=== PATIENT | female | born 1965 | race African-American/Black ===

== ENCOUNTER 2016-12-22 16:13 | Emergency (ER) | payer BC ==
[~2016-12-22] VITALS: Ht 167.6 cm; Wt 82.0 kg
[2016-12-22] MEDS ORDERED: CYCLOBENZAPRINE 10MG TABLET PO ONE (23:30)
[2016-12-22] MEDS ORDERED: KETOROLAC 60MG/2ML VIAL IM ONE (23:30)
[2016-12-23 00:31] VITALS: BP 156/62
== END 2016-12-23 00:33 | disposition home or self-care (01) ==
LOC: ER 23:55
DX: S16.1XXA Strain of muscle, fascia and tendon at neck level, initial encounter (principal); M54.89 Other dorsalgia; V49.49XA Driver injured in collision with other motor vehicles in traffic accident, initial encounter; Y93.89 Activity, other specified; Y92.410 Unspecified street and highway as the place of occurrence of the external cause
CPT/HCPCS: 96372; 99283; J1885

== ENCOUNTER 2017-07-03 06:19 | Emergency (ER) | payer BC ==
[~2017-07-03] VITALS: Ht 167.6 cm; Wt 89.0 kg
[2017-07-03 11:37] LABS: CLARITY URINE CLOUDY (CLEAR); COLOR URINE YELLOW (YELLOW); KETONES URINE TRACE (NEGATIVE); LEUKOCYTE ESTERASE URINE NEGATIVE (NEGATIVE); NITRITE URINE NEGATIVE (NEGATIVE); OCCULT BLOOD URINE TRACE (NEGATIVE); PROTEIN URINE NEGATIVE (NEGATIVE); SPECIFIC GRAVITY URINE 1.025 (1.005-1.030); UROBILINOGEN URINE 0.2 E.U./dL (0.2-1.0)
[2017-07-03] MEDS ORDERED: ACETAMINOPHEN 325MG TABLET PO STA (12:22)
[2017-07-03 12:30] VITALS: BP 116/65
== END 2017-07-03 16:35 | disposition home or self-care (01) ==
LOC: ER 06:19
DX: J10.1 Influenza due to other identified influenza virus with other respiratory manifestations (principal); J20.9 Acute bronchitis, unspecified; M79.1 Myalgia; H92.09 Otalgia, unspecified ear; I10 Essential (primary) hypertension; D86.9 Sarcoidosis, unspecified
CPT/HCPCS: 71045; 81001; 87804; 99285

== ENCOUNTER 2018-10-06 12:45 | Emergency (ER) | payer BC ==
[~2018-10-06] VITALS: Ht 167.6 cm; Wt 84.0 kg
[2018-10-06] MEDS ORDERED: ONDANSETRON 4MG ODT PO ONE (16:00)
[2018-10-06] MEDS ORDERED: IBUPROFEN 600MG TABLET PO ONE (16:00)
[2018-10-06 18:13] VITALS: BP 161/89
== END 2018-10-06 18:15 | disposition home or self-care (01) ==
LOC: ER 12:45
DX: S16.1XXA Strain of muscle, fascia and tendon at neck level, initial encounter (principal); S39.012A Strain of muscle, fascia and tendon of lower back, initial encounter; Z98.890 Other specified postprocedural states; V43.52XA Car driver injured in collision with other type car in traffic accident, initial encounter; Y93.89 Activity, other specified; Y92.488 Other paved roadways as the place of occurrence of the external cause
CPT/HCPCS: 72040; 72100; 99283; Q0162

== ENCOUNTER 2020-03-27 17:59 | Inpatient (IN) | payer BC ==
[~2020-03-27] VITALS: Ht 167.6 cm; Wt 86.2 kg
[2020-03-27] MEDS ORDERED: ONDANSETRON HCL 4MG/2ML INJ IV STA (19:56)
[2020-03-27] MEDS ORDERED: MORPHINE SULFATE 4 MG/ML CPJ (NOT FOR IM USE) IV STA (19:56)
[2020-03-27] MEDS ORDERED: SODIUM CHLORIDE 0.9% 1,000 ML IV ONE (20:00)
[2020-03-27 21:37] LABS: HEMATOCRIT. 41.8 % (36.0-48.0); HEMOGLOBIN. 14.2 g/dL (12.0-16.0); MEAN CORPUSCULAR VOLUME 91.7 fL (81.0-99.0); MEAN PLATELET VOLUME 8.4 fl (7.4-10.4); PLATELET 221 x1000/uL (130-400); RED BLOOD CELL COUNT 4.56 mill/uL (4.2-5.4); RED CELL DISTRIBUTION WIDTH 12.8 % (11.6-14.6)
[2020-03-27 21:44] LABS: CHLORIDE 105 mEq/L (98-107)
[2020-03-27 21:47] LABS: PROTHROMBIN TIME 10.6 sec (9.6-11.0)
[2020-03-27 21:54] LABS: CLARITY URINE CLOUDY (CLEAR); COLOR URINE YELLOW (YELLOW); KETONES URINE TRACE (NEGATIVE); LEUKOCYTE ESTERASE URINE 1+ (NEGATIVE); NITRITE URINE NEGATIVE (NEGATIVE); OCCULT BLOOD URINE 3+ (NEGATIVE); PROTEIN URINE TRACE (NEGATIVE); SPECIFIC GRAVITY URINE 1.021 (1.005-1.030); UROBILINOGEN URINE 0.2 E.U./dL (0.2-1.0)
[2020-03-27 21:56] LABS: *AMPHETAMINES SCREEN URINE NEGATIVE (NEGATIVE); *BARBITURATES SCREEN URINE NEGATIVE (NEGATIVE); *BENZODIAZEPINES SCREEN URINE NEGATIVE (NEGATIVE); *COCAINE SCREEN URINE NEGATIVE (NEGATIVE); METHADONE URINE SCREEN NEGATIVE (NEGATIVE); OPIATES URINE SCREEN NEGATIVE (NEGATIVE)
[2020-03-27 21:57] LABS: CANNABINOID URINE SCREEN NEGATIVE (NEGATIVE); PHENCYCLIDINE URINE SCREEN NEGATIVE (NEGATIVE)
[2020-03-27] MEDS ORDERED: TAMSULOSIN HCL 0.4MG SR CAPSULE PO ONE (22:00)
[2020-03-27] MEDS ORDERED: KETOROLAC 30MG/ML VIAL IV ONE (22:00)
[2020-03-27 22:01] LABS: PLATELET ESTIMATE NORMAL
[2020-03-27] MEDS ORDERED: CEFTRIAXONE 1 G PREMIX 50 ML IV ONE (22:30)
[2020-03-28] VITALS: BP_SYST 138; BP_DIAS 74; BP_DIAS 76
[2020-03-28] MEDS ORDERED: MORPHINE SULFATE 4 MG/ML CPJ (NOT FOR IM USE) IV PRN (00:45)
[2020-03-28] MEDS ORDERED: MECLIZINE 25MG TABLET PO PRN (00:45)
[2020-03-28] MEDS ORDERED: ACETAMINOPHEN 325MG TABLET PO PRN (00:45)
[2020-03-28 04:00] VITALS: BP 133/74
[2020-03-28 08:00] VITALS: BP 127/62
[2020-03-28 12:00] VITALS: BP 124/71
[2020-03-28] MEDS: TAMSULOSIN HCL 0.4MG SR CAPSULE PO SCH (12:14)
[2020-03-28] MEDS: SODIUM CHLORIDE 0.45% 1,000 ML IV SCH (12:15)
[2020-03-28] MEDS: KETOROLAC 30MG/ML VIAL IV SCH ×2 (13:02→17:31)
[2020-03-28] MEDS ORDERED: IPRATROPIUM/ALBUTEROL 0.5-3(2.5)MG/3ML NEB HHN PRN (14:30)
[2020-03-28] MEDS ORDERED: ONDANSETRON HCL 4MG/2ML INJ IV PRN (14:30)
[2020-03-28] MEDS ORDERED: BISACODYL 10MG SUPP PR PRN (14:30)
[2020-03-28] MEDS ORDERED: LORAZEPAM 2MG/ML CPJ IV PRN (14:30)
[2020-03-28 16:00] VITALS: BP 105/55
[2020-03-28 16:32] LABS: BASOPHILS % 0.8 % (0.0-2.0); EOSINOPHILS % 1.4 % (0.0-5.0); HEMATOCRIT. 39.2 % (36.0-48.0); LYMPHOCYTES % 26.4 % (20.0-50.0); MEAN CORPUSCULAR HEMOGLOBIN 30.7 pg (28.0-32.0); MEAN CORPUSCULAR VOLUME 92.5 fL (81.0-99.0); MEAN PLATELET VOLUME 8.4 fl (7.4-10.4); NEUTROPHILS % 62.4 % (40.0-76.0); PLATELET 178 x1000/uL (130-400); RED BLOOD CELL COUNT 4.24 mill/uL (4.2-5.4); RED CELL DISTRIBUTION WIDTH 12.7 % (11.6-14.6)
[2020-03-28 16:46] LABS: CHLORIDE 104 mEq/L (98-107)
[2020-03-28 16:54] LABS: LDL CHOLESTEROL 105 mg/dL (5-100)
[2020-03-28 16:56] LABS: HDL CHOLESTEROL 55 mg/dL (40-59); T4 FREE 0.76 ng/dL (0.76-1.46)
[2020-03-28 20:00] VITALS: BP 121/80
[2020-03-28] MEDS ORDERED: LACTULOSE 20G/30ML UDC PO PRN (21:00)
[2020-03-28] MEDS ORDERED: FAMOTIDINE 20MG TABLET PO SCH (21:00)
[2020-03-28] MEDS ORDERED: CEFTRIAXONE 1,000 MG in DEXTROSE 5% WATER 50 ML IV SCH (23:00)
[2020-03-29] VITALS: BP 113/56
[2020-03-29] MEDS: KETOROLAC 30MG/ML VIAL IV SCH ×3 (01:03→11:42)
[2020-03-29] MEDS: SODIUM CHLORIDE 0.45% 1,000 ML IV SCH ×2 (01:06→06:25)
[2020-03-29 04:00] VITALS: BP 114/58
[2020-03-29 05:55] LABS: CHLORIDE 105 mEq/L (98-107)
[2020-03-29 06:13] LABS: BASOPHILS % 0.9 % (0.0-2.0); EOSINOPHILS % 2.5 % (0.0-5.0); HEMOGLOBIN. 12.4 g/dL (12.0-16.0); LYMPHOCYTES % 36.7 % (20.0-50.0); MEAN CORPUSCULAR HEMOGLOBIN 30.7 pg (28.0-32.0); MEAN CORPUSCULAR VOLUME 91.7 fL (81.0-99.0); MEAN PLATELET VOLUME 8.7 fl (7.4-10.4); MONOCYTES % 8.2 % (2.0-8.0); NEUTROPHILS % 51.7 % (40.0-76.0); PLATELET 181 x1000/uL (130-400); RED BLOOD CELL COUNT 4.03 mill/uL (4.2-5.4); RED CELL DISTRIBUTION WIDTH 12.5 % (11.6-14.6)
[2020-03-29 08:00] VITALS: BP 101/60
[2020-03-29] MEDS: TAMSULOSIN HCL 0.4MG SR CAPSULE PO SCH (08:29)
[2020-03-29 12:00] VITALS: BP 119/64
[2020-03-29 14:13] VITALS: BP 119/64
== END 2020-03-29 15:05 | disposition home or self-care (01) | DRG 690 ==
LOC: ER 17:59 → 6EST 22:19 → EDBEDREQTM 22:21 → EDBEDREQ 22:21 → ENRESERV 22:44
PROVIDERS: ADMIT Internal Medicine; ATTEND Internal Medicine
DX: N13.6 Pyonephrosis (principal); N20.2 Calculus of kidney with calculus of ureter; E66.9 Obesity, unspecified; D86.9 Sarcoidosis, unspecified; R16.0 Hepatomegaly, not elsewhere classified; I10 Essential (primary) hypertension; R73.9 Hyperglycemia, unspecified; K42.9 Umbilical hernia without obstruction or gangrene; K76.0 Fatty (change of) liver, not elsewhere classified; Z87.442 Personal history of urinary calculi; Z68.30 Body mass index [BMI] 30.0-30.9, adult
CPT/HCPCS: 36415; 74176; 76770; 80048; 80053; 80061; 80305; 81003; 83036; 84439; 84443; 85025; 93005; 99285; J0696; J1885; J2270; J2405; J7030; J7060

== ENCOUNTER → 2020-06-04 | Outpatient (CLI) | payer BC | END | disposition home or self-care (01) | LOC: CT 08:00 | PROVIDERS: ATTEND Specialist | DX: R16.0 Hepatomegaly, not elsewhere classified (principal); K42.9 Umbilical hernia without obstruction or gangrene; N20.0 Calculus of kidney | CPT/HCPCS: 74176 ==

== ENCOUNTER 2020-09-20 02:10 | Inpatient (IN) | payer BC ==
[~2020-09-20] VITALS: Ht 167.6 cm; Wt 89.4 kg
[2020-09-20 02:43] LABS: CLARITY URINE CLOUDY (CLEAR); COLOR URINE YELLOW (YELLOW); KETONES URINE TRACE (NEGATIVE); LEUKOCYTE ESTERASE URINE TRACE (NEGATIVE); NITRITE URINE NEGATIVE (NEGATIVE); OCCULT BLOOD URINE NEGATIVE (NEGATIVE); PROTEIN URINE NEGATIVE (NEGATIVE); SPECIFIC GRAVITY URINE 1.023 (1.005-1.030); UROBILINOGEN URINE 0.2 E.U./dL (0.2-1.0)
[2020-09-20] MEDS ORDERED: NITROGLYCERIN 0.4MG TABLET SL SL ONE (02:45)
[2020-09-20] MEDS ORDERED: ASPIRIN 325MG EC TABLET PO ONE (02:45)
[2020-09-20 03:19] LABS: BASOPHILS % 0.8 % (0.0-2.0); EOSINOPHILS % 1.9 % (0.0-5.0); HEMATOCRIT. 42.1 % (36.0-48.0); HEMOGLOBIN. 13.9 g/dL (12.0-16.0); LYMPHOCYTES % 37.4 % (20.0-50.0); MEAN CORPUSCULAR HEMOGLOBIN 30.3 pg (28.0-32.0); MEAN CORPUSCULAR VOLUME 91.9 fL (81.0-99.0); MEAN PLATELET VOLUME 8.5 fl (7.4-10.4); MONOCYTES % 8.2 % (2.0-8.0); NEUTROPHILS % 51.7 % (40.0-76.0); PLATELET 221 x1000/uL (130-400); RED BLOOD CELL COUNT 4.58 mill/uL (4.2-5.4); RED CELL DISTRIBUTION WIDTH 12.7 % (11.6-14.6)
[2020-09-20 03:20] LABS: CHLORIDE 105 mEq/L (98-107)
[2020-09-20 08:00] VITALS: BP_SYST 114; BP_DIAS 60; BP_DIAS 68
[2020-09-20 08:58] VITALS: BP 114/68
[2020-09-20] MEDS ORDERED: ACETAMINOPHEN 325MG TABLET PO PRN (11:00)
[2020-09-20] MEDS ORDERED: ONDANSETRON HCL 4MG/2ML INJ IV PRN (11:00)
[2020-09-20 12:00] VITALS: BP 111/60
[2020-09-20] MEDS ORDERED: REGADENOSON 0.4 MG/5 ML IV NR (12:00)
[2020-09-20] MEDS: ASPIRIN 81MG TABLET PO SCH (14:03)
[2020-09-20] MEDS ORDERED: REGADENOSON 0.4 MG/5 ML IV ONE (14:54)
[2020-09-20 16:00] VITALS: BP 114/74
[2020-09-20 20:00] VITALS: BP 102/47
[2020-09-21] VITALS: BP 99/58
[2020-09-21 04:00] VITALS: BP 99/52
[2020-09-21 08:00] VITALS: BP 113/63
[2020-09-21] MEDS: ASPIRIN 81MG TABLET PO SCH (09:19)
[2020-09-21 12:00] VITALS: BP 124/60
[2020-09-21 15:40] VITALS: BP 124/60
[2020-09-21 16:00] VITALS: BP 110/65
== END 2020-09-21 15:55 | disposition home or self-care (01) | DRG 206 ==
LOC: ER 02:10 → ENRESERV 07:04 → 6WST 08:15
PROVIDERS: ADMIT Internal Medicine; ATTEND Internal Medicine
DX: M94.0 Chondrocostal junction syndrome [Tietze] (principal); D86.9 Sarcoidosis, unspecified; E66.9 Obesity, unspecified; Z20.822 Contact with and (suspected) exposure to COVID-19; K21.9 Gastro-esophageal reflux disease without esophagitis; I11.9 Hypertensive heart disease without heart failure; Z71.3 Dietary counseling and surveillance; Z68.31 Body mass index [BMI] 31.0-31.9, adult
CPT/HCPCS: 36415; 71045; 78452; 80053; 81003; 83880; 84484; 85025; 85379; 85651; 86140; 87426; 93005; 93017; 93306; 99285; A9500; J2785

== ENCOUNTER 2024-07-09 16:13 | Emergency (ER) | payer BC, OTHER ==
[~2024-07-09] VITALS: Ht 170.2 cm; Wt 70.0 kg
[2024-07-09 16:21] VITALS: TEMP 36.7; O2SAT 95
[2024-07-09] MEDS ORDERED: ONDANSETRON HCL 4MG/2ML INJ IV STA (16:53)
[2024-07-09] MEDS: ONDANSETRON HCL 4MG/2ML INJ IV NR (18:40)
[2024-07-09] MEDS: SODIUM CHLORIDE 0.9% 1,000 ML IV ONE (18:40)
[2024-07-09 21:18] LABS: BASOPHILS % 0.5 % (0.0-2.0); EOSINOPHILS % 0.1 % (0.0-5.0); HEMOGLOBIN. 13.7 g/dL (12.0-16.0); LYMPHOCYTES % 16.9 % (20.0-50.0); MEAN CORPUSCULAR HEMOGLOBIN 30.1 pg (28.0-32.0); MEAN CORPUSCULAR HGB CONC 32.5 g/dL (31.0-37.0); MEAN CORPUSCULAR VOLUME 92.5 fL (81.0-99.0); MEAN PLATELET VOLUME 8.9 fl (7.4-10.4); MONOCYTES % 3.4 % (2.0-8.0); NEUTROPHILS % 79.1 % (40.0-76.0); PLATELET 226 x1000/uL (130-400); RED BLOOD CELL COUNT 4.54 mill/uL (4.2-5.4); RED CELL DISTRIBUTION WIDTH 12.9 % (11.6-14.6); WHITE BLOOD COUNT 8.2 x1000/uL (4.5-11.0)
[2024-07-09 21:23] LABS: CARBON DIOXIDE 25 mEq/L (21-32); CHLORIDE 107 mEq/L (98-107); SODIUM 145 mEq/L (136-145)
[2024-07-09 21:24] LABS: CALCIUM 8.9 mg/dL (8.7-10.4)
[2024-07-09 21:29] LABS: CREATININE 0.8 mg/dL (0.6-1.0); ETHANOL BLOOD 36 mg/dL (<10); GLUCOSE 171 mg/dL (70-105); UREA NITROGEN BLOOD 7 mg/dL (9-23)
[2024-07-09 21:35] LABS: TROPONIN I HIGH SENSITIVITY < 4 ng/L (3.0-34)
[2024-07-09 23:39] VITALS: BP 125/67; PULSE 82; RESP 18; O2SAT 99
== END 2024-07-09 23:40 | disposition home or self-care (01) ==
LOC: ER 16:13
DX: R55 Syncope and collapse (principal); R11.2 Nausea with vomiting, unspecified; E11.9 Type 2 diabetes mellitus without complications; I10 Essential (primary) hypertension; Z98.890 Other specified postprocedural states
CPT/HCPCS: 80048; 80320; 85025; 85610; 84484; 36415; 71045; 70450; 93005; 96361; 96374; 99285; J2405; J7030; Z7610; A4606; G0480